=== PATIENT | male | born 1975 | race Caucasian/White ===

== ENCOUNTER → 2016-12-21 | Outpatient (CLI) | payer BC, OTHER | LOC: MRI 11:24 | DX: M75.102 Unspecified rotator cuff tear or rupture of left shoulder, not specified as traumatic (principal); M25.512 Pain in left shoulder ==

== ENCOUNTER → 2021-02-09 | Outpatient (CLI) | payer OTHER | LOC: CAT 15:13 | PROVIDERS: ATTEND Family Medicine | DX: Z13.6 Encounter for screening for cardiovascular disorders (principal) ==